=== PATIENT | female | born 1985 | race Caucasian/White ===

== ENCOUNTER 2019-09-24 08:25 | Emergency (ER) | payer OTHER, SELFPAY ==
[2019-09-24 08:32] VITALS: BP 136/97; PULSE 76; RESP 18; TEMP 37.4; O2SAT 99
--- NOTE | 2019-09-24 08:44 | ED.GENADUL_ITS ---
Discharge Plan Disposition Patient Disposition: HOME Condition: Stable Discharge Details Chief Complaint: Sorethroat Clinical Impression: Influenza B Primary Care Provider: Vanessa,Local ED Provider: Jennifer Quintero Home Meds and New Rx's Prescriptions: No Action sertraline 25 mg Tablet 25 mg PO DAILY RF: 0 levothyroxine 25 mcg Capsule 25 mcg PO DAILY RF: 0 Discharge Instructions Instructions: Pharyngitis (ED), Influenza (ED) Additional Instructions: Please return immediately to the emergency department if you develop any new or worsening symptoms, if your condition does not improve as expected, or if you become otherwise concerned. It is extremely important that you call soon as possible to make an appointment to be seen in follow-up for this visit by your primary care doctor. Medical Decision Making Annmarie Gomez is a 34-year-old woman with a history of thyroid disease presenting to the emergency department 3 days of nasal congestion, mild cough, now with sore throat since yesterday morning. On exam patient is nontoxic- appearing. There is mild erythema of the posterior pharynx without tonsillar edema/erythema/exudate, voice is somewhat hoarse, handling secretions without issue, normal TMs, benign cardiopulmonary exam. Concern for strep versus influenza versus mono versus other. Exam/history is not consistent with impending airway compromise, sepsis, meningitis, peritonsillar abscess, retropharyngeal abscess. Rapid strep negative. Will send influenza, mono. Given patient's reported level of pain and relatively benign appearance of the posterior pharynx, plan for lateral soft for acute process. Flu swab positive for influenza B. Patient drinking water in the emergency department, reports continued sore throat. Patient reports having taken ibuprofen at 6:00 this morning. Plan for Tylenol. I had a lengthy discussion with Patient regarding return to emergency department precautions, home care, and importance of outpatient follow-up. Pt verbalizes understanding of the plan and is amenable. Patient discharged to home with clear plan for outpatient follow-up. All questions were answered. Disposition decision was made weighing the risks and benefits of hospitalization versus outpatient treatment, the risk for further decompensation, and the patient's wishes. Medical Records Medical records reviewed: Yes I reviewed the patient's medical records. Imaging Data Radiologic Study: Attestation: I personally reviewed and interpreted this imaging study as follows: Radiologist's impression: EXAM: XR SOFT TISSUE NECK INDICATION: sore throat, hoarse voice. COMPARISON: No exams were available for comparison TECHNIQUE: 2D digital imaging was performed. FINDINGS: There is no narrowing of the airway. The epiglottis appears grossly unremarkable. The prevertebral soft tissues are unremarkable. The cervical spine is unremarkable. IMPRESSION: Unremarkable examination. Lab Data Lab results reviewed: Yes I reviewed the patient's lab results. Labs: 09/24/19 09:31 Nasopharynx Influenza Types A,B Antigen - Final 09/24/19 08:28 Pharynx Streptococcus Screen ([facility]) - Pending Laboratory Tests Range/Units 09/24/19 09:40 Monoscreen (Negative) Negative HPI General Mode of arrival: ambulatory . Date/Time Provider Initiated Documentation: 09/24/19 08:44 . Limitations to Documentation: no limitations . Information obtained by: patient, RN notes reviewed and old records reviewed . HPI Narrative: Annmarie Gomez is a 34-year-old woman with a history of thyroid disease presenting to the emergency department with sore throat. Patient reports that she has had cold symptoms for the past 3 days, including nasal congestion, mild nonproductive cough. Patient reports that she developed a sore throat yesterday morning that has gotten progressively worse. Patient reports that she has significant pain with swallowing. She also reports bilateral ear pain since onset of sore throat. She denies any other pain. No fevers, vomiting, diarrhea, shortness of breath, numbness, weakness. Patient reports that she has been drinking fluids, but has not had much to eat since last night due to pain with swallowing. She reports that she did not take her medication this morning secondary to painful swallowing. Related Data Home Medications Medication Instructions Recorded Confirmed levothyroxine 25 mcg PO DAILY 09/24/19 09/24/19 sertraline 25 mg PO DAILY 09/24/19 09/24/19 Allergies Allergy/AdvReac Type Severity Reaction Status Date / Time oxycodone AdvReac Nausea Unverified 09/24/19 08:31 General Stated Complaint: Sorethroat AFSHAN: 4 Review of Systems Narrative: Constitutional: denies fevers Eyes: denies eye pain ENT: denies dental pain, reports bilateral ear pain, sore throat Cardiovascular: denies chest pain Respiratory: denies SOB, reports mild cough GI: denies abdominal pain, vomiting, diarrhea : denies flank pain MSK: denies back pain, neck pain, arthralgias, myalgias Skin: denies rash Neuro: denies headaches, numbness, weakness PFSH Social History Smoking/Tobacco Use Status: Never Substance use type: does not use Do you feel safe at home: Yes Do you feel safe in your relationship?: Yes Exam Narrative Exam Narrative: Constitutional: well and [id number], pleasant, conversing normally HENT: head atraumatic/normocephalic/normal inspection, mucous membranes moist, erythema of the posterior pharynx, no tonsillar edema or exudates, uvula midline, no other intraoral lesion or abnormality, TMs with scarring bilaterally (patient reports history of ear infections and tubes bilaterally as a child), no injection/dullness/bulging of the TMs bilaterally, normal canals bilaterally, no mastoid tenderness bilaterally, no drooling or pooling of secretions, hoarse voice Eyes: conjunctiva normal, sclera normal, pupils 3mm b/l Neck: no stridor, full ROM, trachea midline, supple, no anterior or posterior lymphadenopathy Resp: normal work of breathing, LCTAB Cardio: normal rate, normal rhythm, no murmur appreciated Skin: warm, dry, normal color, no rash Neuro: alert, not altered, grossly non-focal, normal tone, normal gait Ext: Moving all extremities equally Psych: normal mood, normal affect, normal behavior Course Vital Signs Vital signs: Vital Signs Temperature 37.4 C 09/24/19 08:32 Pulse 76 09/24/19 08:32 Respiratory Rate 18 09/24/19 08:32 Blood Pressure 136/97 H 09/24/19 08:32 Pulse Oximetry 99 09/24/19 08:32 Temperature 37.4 C 09/24/19 08:32 Temperature Source Temporal Artery Scan 09/24/19 08:32 Pulse 76 09/24/19 08:32 Respiratory Rate 18 09/24/19 08:32 Respiratory Effort Non-Labored 09/24/19 08:36 Blood Pressure 136/97 H 09/24/19 08:32 Blood Pressure Position Sitting 09/24/19 08:32 Pulse Oximetry 99 09/24/19 08:32 Oxygen Delivery Method Room Air 09/24/19 08:32 Oxygen Flow Rate 0 09/24/19 08:32 Pain Level 8 09/24/19 08:32 Lab/Test Results Lab/Test Results: 09/24/19 08:28 Pharynx Streptococcus Screen ([facility]) - Pending POC Strep Test-[facility](Rapid) Start: 09/24/19 08:30 Freq: .Rapid Strep Test Status: Active Protocol: Document 09/24/19 08:39 (Rec: 09/24/19 08:39 [id number]) Strep test-[facility](Rapid)-POC POC-Strep test-[facility] (Rapid) Negative POC-Strep test-[facility] (Rapid) Negative
--- NOTE | 2019-09-24 09:51 | DI.RAD_ITS ---
EXAM: XR SOFT TISSUE NECK INDICATION: sore throat, hoarse voice. COMPARISON: No exams were available for comparison TECHNIQUE: 2D digital imaging was performed. FINDINGS: There is no narrowing of the airway. The epiglottis appears grossly unremarkable. The prevertebral soft tissues are unremarkable. The cervical spine is unremarkable. IMPRESSION: Unremarkable examination.
[2019-09-24 09:56] LABS: Mono Screening Negative (Negative)
[2019-09-24] MEDS: Acetaminophen 500 MG TAB 1000 MG PO (10:36)
[2019-09-24 10:39] VITALS: BP 120/67; PULSE 91; RESP 22; TEMP 36.5; O2SAT 100
== END 2019-09-24 10:43 | disposition home or self-care (01) ==
PROVIDERS: Emergency Provider Student in an Organized Health Care Education/Training Program
DX: J02.0 Streptococcal pharyngitis (principal); J10.1 Influenza due to other identified influenza virus with other respiratory manifestations
CPT/HCPCS: 36415; 87449; 87880; 99284; 70360; 86308; 87081; 99283